=== PATIENT | female | born 1970 | race Caucasian/White ===

== ENCOUNTER 2017-05-19 01:11 | Emergency (ER) | payer BC ==
[~2017-05-19] VITALS: Ht 154.9 cm; Wt 103.3 kg
[2017-05-19 01:33] LABS: HEMOGLOBIN 13.1 G/DL (11.9-15.5); MCH 31.7 PG (29.0-34.0); MCHC 34.5 G/DL (30.0-36.0); PLATELET COUNT 188 K/uL (156-360); RBC DIS.WIDTH-CV 13.6 % (11.8-14.6); RBC DIS.WIDTH-SD 45.4 % (39-53); RED BLOOD COUNT 4.13 M/uL (3.80-5.20); WHITE BLOOD COUNT 10.5 K/uL (4.1-10.2)
[2017-05-19 01:54] LABS: ALBUMIN 4.1 g/dL (3.2-4.8); CHLORIDE 110 mEq/L (99-109); POTASSIUM 3.6 mEq/L (3.7-5.4); SODIUM 142 mEq/L (136-147)
[2017-05-19 01:56] LABS: GLUCOSE 155 mg/dL (70-99); TOTAL PROTEIN 6.9 g/dL (6.4-8.3)
[2017-05-19 01:58] LABS: TOTAL BILIRUBIN 0.3 mg/dL (0.0-1.0)
[2017-05-19 02:00] LABS: ALKALINE PHOSPHATASE 73 IU/L (3-129); CREATININE 0.9 mg/dL (0.6-1.3); GFR ESTIMATE (CALCULATED) > 59 mL/min/
[2017-05-19 02:01] LABS: UREA NITROGEN (BUN) 13 mg/dL (9-23)
[2017-05-19 02:02] LABS: AST (GOT) 17 IU/L (2-34)
[2017-05-19 02:03] LABS: ALT (GPT) 15 IU/L (3-49)
[2017-05-19] MEDS ORDERED: ZOFRAN ODT4 MG PO (03:01)
[2017-05-19] MEDS ORDERED: PERCOCET 5/31 TABLET PO (03:01)
[2017-05-19] MEDS ORDERED: FLOMAX0.4 MG PO (03:01)
[2017-05-19 03:04] LABS: APPEARANCE CLOUDY ((CLEAR)); COLOR LT.RED ((YELLOW))
[2017-05-19 03:05] LABS: BILIRUBIN NEGATIVE; BLOOD LARGE; GLUCOSE (STRIP) NEGATIVE; KETONES NEGATIVE; LEUKOCYTES NEGATIVE; NITRITE NEGATIVE; PH, URINE 7.5 (5-8); PROTEIN (STRIP) NEGATIVE; UROBILINOGEN 0.2 MG/DL (0.2-1.0)
[2017-05-19 03:23] LABS: EPITHELIAL CELLS RARE /HPF; MUCUS NONE SEEN /LPF; RED BLOOD CELLS TNTC /HPF (0-5); UCUL ADDED? YES; WHITE BLOOD CELLS 0-5 /HPF (0-5)
[2017-05-19 03:24] LABS: BACTERIA RARE /HPF
[2017-05-19 03:52] VITALS: BP 155/67
== END 2017-05-19 03:53 | disposition home or self-care (01) ==
LOC: EME 01:11
PROVIDERS: Physician Assistant
DX: N20.1 Calculus of ureter (principal); Z87.442 Personal history of urinary calculi; Z88.0 Allergy status to penicillin
CPT/HCPCS: 74176; 80053; 81003; 85027; 87086; 99281; 99284; J1200; J1885; J2270; J2405; J2765; J7030